=== PATIENT | female | born 1980 | race Caucasian/White ===

== ENCOUNTER 2017-04-25 07:21 | Emergency (ER) | payer BC ==
[2017-04-25 07:31] VITALS: BP 132/83
--- NOTE | 2017-04-25 07:55 | UC ---
Ear Complaint HPI - HPI Summary HPI Summary: 37 yo WF c/o left ear pain x few days, deep in the left ear associated with left posterior auricular LN tenderness. Denies f/c/URI sx - History of Current Complaint Chief Complaint: UCEar Stated Complaint: EAR PAIN Time Seen by Provider: 04/25/17 07:44 Hx Obtained From: Patient Hx Last Menstrual Period: 04/04/17 ?: No Severity Initially: Moderate Severity Currently: Moderate Alleviating Factors: Nothing Associated Signs/Symptoms: Negative: Discharge, Hearing Loss - Allergies/Home Medications Allergies/Adverse Reactions: Allergies Allergy/AdvReac Type Severity Reaction Status Date / Time Meperidine [From Demerol HCl] Allergy Severe Airway Verified 04/25/17 07:29 Obstruction PMH/Surg Hx/FS Hx/Imm Hx Previously Healthy: No - Surgical History Surgical History: Yes Surgery Procedure, Year, and Place: 2006. tubal ligation 2006. BOTH DONE AT [facility]. [place] [facility] [place] - Family History Known Family History: Positive: None - Social History Alcohol Use: Occasionally Substance Use Type: None Smoking Status (MU): Never Smoked Tobacco Have You Smoked in the Last Year: No - Immunization History Most Recent Tetanus Shot: Unknown Review of Systems Constitutional: Negative, Fatigue Skin: Negative Eyes: Negative ENT: Ear Ache Respiratory: Negative Cardiovascular: Negative Gastrointestinal: Negative Genitourinary: Negative Motor: Negative Neurovascular: Negative Musculoskeletal: Negative Neurological: Negative Psychological: Negative All Other Systems Reviewed And Are Negative: Yes Physical Exam Triage Information Reviewed: Yes Appearance: Well-Appearing Vital Signs: Initial Vital Signs Temp 36.6 C 04/25/17 07:29 Pulse 86 04/25/17 07:29 Resp 15 04/25/17 07:29 BP 132/83 04/25/17 07:29 Pulse Ox 100 04/25/17 07:29 Eye Exam: Normal ENT Exam: Normal ENT: Positive: Hearing grossly normal, TMs normal, Uvula midline, Other - EXQUISITE TENDERNESS OF LEFT POST AURICULAR LN. Negative: Pharynx normal, Pharyngeal erythema, TM bulging, TM dull, TM red, Tonsillar swelling, Tonsillar exudate, Hoarse voice, Sinus tenderness Dental Exam: Normal Neck exam: Normal Neck: Positive: 1 Respiratory Exam: Normal Cardiovascular Exam: Normal Abdominal Exam: Normal Musculoskeletal Exam: Normal Neurological Exam: Normal Psychological Exam: Normal Skin Exam: Normal Ear Complaint Course/Dx - Differential Dx/Diagnosis Provider Diagnoses: left otitis media Discharge - Discharge Plan Condition: Stable Disposition: HOME Prescriptions: Amoxicillin PO (*) [Amoxicillin 875 MG (*)] 875 mg PO BID 7 Days #14 tab Patient Education Materials: Otitis Media (ED) Referrals: Susana Enamorado MD [Primary Care Provider] - Additional Instructions: as tolerated
== END 2017-04-25 07:50 | disposition home or self-care (01) ==
LOC: UCEAST 07:21
DX: H66.92 Otitis media, unspecified, left ear (principal); Z88.5 Allergy status to narcotic agent
CPT/HCPCS: 99212; G0463